=== PATIENT | male | born 1935 | race Caucasian/White ===

== ENCOUNTER 2020-12-24 14:27 | Outpatient (REF) | payer MEDICARE, SELFPAY ==
[2020-12-24 17:44] LABS: Estimated Average Glucose 103 mg/dL; Hemoglobin A1c % 5.2 %
[2020-12-25 16:14] LABS: Folate 15.9 ng/mL (> or = 4.0); Vitamin B12 309 pg/mL (200-900)
== END 2020-12-24 14:28 | disposition home or self-care (01) ==
LOC: HO.MANLDS 14:27
PROVIDERS: PCP Internal Medicine; Visit Provider Physician Assistant
DX: G62.9 Polyneuropathy, unspecified (principal)
CPT/HCPCS: 36415; 82607; 82746; 83036

== ENCOUNTER 2022-10-13 13:52 | Outpatient (REF) | payer MEDICARE, SELFPAY ==
[2022-10-16 12:34] LABS: Lyme Abs Screen <0.90 index
== END 2022-10-13 13:53 | disposition home or self-care (01) ==
LOC: HO.MANLDS 13:52
PROVIDERS: Visit Provider Physician Assistant
DX: T14.8XXA Other injury of unspecified body region, initial encounter (principal); W57.XXXA Bitten or stung by nonvenomous insect and other nonvenomous arthropods, initial encounter
CPT/HCPCS: 86617; 86618; 86666; 86757; 87798